=== PATIENT | male | born 1990 | race Caucasian/White ===

== ENCOUNTER 2017-04-25 20:14 | Emergency (ER) | payer OTHER ==
--- NOTE | 2017-04-25 20:35 | PDOC ---
Rapid Medical Evaluation Chief Complaint: Cold Symptoms Time Seen by Provider: 04/25/17 20:32 Medical Evaluation: Allergies Allergy/AdvReac Type Severity Reaction Status Date / Time No Known Allergies Allergy Verified 04/25/17 20:32 04/25/17 20:32 Pt with c/o: weakness, fever, chills, took motrin , nyquil , and robitussin 1 hr ago Pt on brief exam: vss Pt ordered for:influenza Pt to proceed to the ED Discharge Disposition - Diagnosis Fever - Referrals - Patient Instructions - Post Discharge Activity
[2017-04-25 20:37] VITALS: BP 139/85; PULSE 96; TEMP 99.7; BMI 35.2
[2017-04-25] MEDS ORDERED: PENICILLIN G BENZATHINE 1,200,000 UNIT/2 ML PFS IM ONE (22:11)
--- NOTE | 2017-04-25 22:11 | PDOC ---
History of Present Illness - General Chief Complaint: Cold Symptoms Stated Complaint: COLD SXS Time Seen by Provider: 04/25/17 20:32 History Source: Patient Exam Limitations: No Limitations - History of Present Illness Initial Comments: 04/25/17 22:28 This is a 26-year-old male without significant past medical history who presents to the emergency department with 2 days of sore throat, tactile fevers , dry cough. Denies any sick contacts. Patient states he did not this flu shot earlier this year. He denies chest pain, shortness of breath, abdominal pain, nausea, vomiting, headaches, dizziness. Past History - Past Medical History Allergies/Adverse Reactions: Allergies Allergy/AdvReac Type Severity Reaction Status Date / Time No Known Allergies Allergy Verified 04/25/17 20:32 Home Medications: Ambulatory Orders Guaifenesin [Robitussin] 100 mg PO Q4H 04/25/17 Ibuprofen [Advil -] 400 mg PO QID 04/25/17 Pheniramine/P-Eph/Acetaminophn [Theraflu Flu & Sore Throat] 1 each PO ASDIR - Suicide/Smoking/Psychosocial Hx Smoking History: Current every day smoker Number of Cigarettes Smoked Daily: 12 Information on smoking cessation initiated: No Hx Alcohol Use: No Drug/Substance Use Hx: No *Physical Exam - Vital Signs Last Vital Signs Temp Pulse Resp BP Pulse Ox 99.7 F H 96 H 20 139/85 96 04/25/17 20:32 04/25/17 20:32 04/25/17 20:32 04/25/17 20:32 04/25/17 20:32 ED Treatment Course - ADDITIONAL ORDERS Additional order review: 04/25/17 20:35 Influenza Types A,B Antigen ([facility]) - Final Nasopharyngeal Swab - Final Medical Decision Making - Medical Decision Making 04/25/17 22:29 26-year-old male without significant past medical history with fever, sore throat, dry cough for the past 2 days. Oropharynx examination reveals tonsillar erythema and tonsillar exudate. Anterior cervical lymphadenopathy present. No tenderness to palpation over sinuses. Lungs clear to auscultation bilaterally. Influenza testing done at [facility] is negative Patient clinically has strep throat I will treat with Bicillin 1.2 million units IM *DC/Admit/Observation/Transfer Diagnosis at time of Disposition: Strep pharyngitis - Discharge Dispostion Disposition: HOME Condition at time of disposition: Stable Admit: No - Referrals - Patient Instructions Additional Instructions: Given fully treated for streptococcal pharyngitis. Thoroughly her toothbrush and began using a new toothbrush immediately. Influenza testing was negative. Take Tylenol or Motrin for fever and/or pain. Follow manufacturers instructions for appropriate dosage. Return to emergency department for worsening fevers, difficulty breathing, worsening sore throat, drooling, or any other concerns. Thank you very much for choosing us to provide your emergent healthcare needs. - Post Discharge Activity
[2017-04-25] MEDS ORDERED: PENICILLIN G BENZATHINE 2,400,000 UNIT/4 ML PFS ONE (22:17)
== END 2017-04-25 22:35 | disposition home or self-care (01) ==
LOC: JER 20:14 → JERFT 20:14
DX: J02.0 Streptococcal pharyngitis (principal); B95.5 Unspecified streptococcus as the cause of diseases classified elsewhere
CPT/HCPCS: 87804; 99281-25